=== PATIENT | female | born 1965 | race Caucasian/White ===

== ENCOUNTER → 2017-02-06 10:11 | Day surgery (SDC) | payer BC ==
--- NOTE | 2017-02-05 12:47 | HP ---
PREOPERATIVE HISTORY AND PHYSICAL: DATE OF ADMISSION: 02/06/17 DATE OF SURGERY: 02/06/17 DATE OF OFFICE VISIT: 02/05/17 ATTENDING SURGEON: Niurka Weiss MD PROCEDURE: Right shoulder arthroscopic decompression, debridement and possible subpectoral biceps t enodesis and possible rotator cuff repair. CHIEF COMPLAINT: Right shoulder pain. HISTORY OF PRESENT ILLNESS: Ms. Paige Philippe is a 51-year-old female who presents to the clinic for ongoing right shoulder pain since October when she was doing a one-arm pushup and felt a pop in he r arm. Since then, she has had pain and limited range of motion. She has failed conservative measu res and therefore has agreed to undergo a right shoulder arthroscopic decompression, debridement, po ssible subpectoral biceps tenodesis and possible rotator cuff repair with Dr. Weiss on 02/06/17. PAST MEDICAL HISTORY: JRA and mixed connective tissue disease. PAST SURGICAL HISTORY: Tympanoplasty in 1982, cholesteatoma surgery, tonsillectomy and adenoidectom y. Denies any problems with anesthesia. MEDICATIONS: 1. Xanax 50 mg 1 by mouth at night. 2. Vitamin D 5000 units daily. 3. [place]-3 2000 mg daily. 4. Aspirin as needed. 5 Tramadol 50 mg half a pill q. 4-6 hours as needed for pain. ALLERGIES: PENICILLIN causes shock, CEPHALOSPORIN causes C. diff, mild allergy to ADHESIVE TAPE. FAMILY HISTORY: Denies. SOCIAL HISTORY: The patient lives with her spouse. She works as a high school learning support teacher. She denie s tobacco use. She drinks 2 to 3 alcoholic beverages per week. She exercises regularly. She is ri ght-hand dominant. REVIEW OF SYSTEMS: A 14-point review of systems was reviewed with the patient and found to be negat adelina. Denies history of DVT, PE, shortness of breath, chest pain or bleeding disorder. PHYSICAL EXAMINATION GENERAL: Well-developed, well-nourished 51-year-old female in no acute distress. VITAL SIGNS: Height 64, weight 117, pulse 82, blood pressure 110/64, respiratory rate 14, temperatu re 97, BMI 20.1. HEENT: Normocephalic, atraumatic. PERRLA. Throat: Clear. NECK: Supple. PULMONARY: Lungs clear to auscultation bilaterally. No wheezing, rhonchi or rales. CARDIO: Regular rate and rhythm. S1, S2. No murmurs, gallops or rubs. No edema. ABDOMEN: Positive bowel sounds. Soft and nontender. MUSCULOSKELETAL: Right upper extremity, skin is intact. No obvious deformity. Tenderness to palpat ion of the subacromial space, the muscle bellies of the infraspinatus and the proximal biceps tendon . Forward flexion to 160, abduction to 90, external rotation to 45, internal rotation to the lumbar spine. No instability of the shoulder. +5/5 strength to the supraspinatus. +4/5 strength to the infraspinatus belly-press and bear-hug. Positive Neer, Speed's, Vigil- Guillermo,[place]. Positive radial pulse. Sensation intact to light touch distally. NEUROLOGIC: Alert and oriented x3. Cranial nerves grossly intact. Sensation intact to light touch distally. STUDIES: Multiple view radiographs revealed normal study with no evidence of acute fracture, dislo cation or arthritis. MR arthrogram of the right shoulder revealed infraspinatus tendinosis. IMPRESSION: Impingement syndrome and possible SLAP tear with the head of the biceps insert on the s uperior labrum. PLAN: The patient is scheduled to undergo a right shoulder arthroscopic decompression, debridement, possible subpectoral biceps tenodesis and possible rotator cuff repair with Dr. Weiss on 02/06/17. She will return to the office 10 to 14 days postop for follow up and suture removal. A prescripti on for Sherman was e- prescribed to the patient's pharmacy for postoperative pain management. She is also sent on Bactrim for infection prevention. DARINEL BO [id number]/[facility] #: [id number]
[~2017-02-06 10:11] MED LIST: Buffered Lidocaine 1% SYRIN* 3 ML/SYR SYRINGE INTRADERM ONE; Bupivacaine 0.25% SDV* 30 ML ONE; Clindamycin 900 MG IVPREMIX(* 0 MG/0 ML SDV IV ONE; Dexamethasone IV* 4 MG/ML 1 ML (4 MG) ONE; DiMENhydriNATE IV* 50 MG/ML VIAL IV PUSH PRN; DiMENhydriNATE IV* 50 MG/ML VIAL ONE; Famotidine IV* 10 MG/ML 2 ML (20 mg) IV ONE; Famotidine IV* 10 MG/ML 2 ML (20 mg) ONE; HYDROcodone/ACETAMIN 5-325 MG* 1 TAB PO PRN; HYDROmorphone* 1 MG/ML 1 ML SYR IV PRN; Midazolam* 1 MG/ML 5 ML VIAL (5 MG) ONE; Ondansetron INJ* 2 MG/ML VIAL IV PRN; Ondansetron INJ* 2 MG/ML VIAL ONE; Propofol* 10 MG/ML 20 ML BTL IV PUSH ONE; Scopolamine 1.5 mg* PATCH ONE; Scopolamine 1.5 mg* PATCH TRANSDERM ONE; Scopolomine PATCH Remove* 1 NOTE MISC PATCH OFF ONE; Vancomycin(*) 1,000 MG in NS 0.9% 250 ML* 250 ML IVPB ONE; fentaNYL* 50 MCG/ML 2 ML VIAL (100 MCG VIAL) IV PRN; fentaNYL* 50 MCG/ML 2 ML VIAL (100 MCG VIAL) ONE; methylPREDNISolone ACETATE 80* 80 MG/ML 1 ML VIAL ONE; oxyCODONE TAB* 5 MG TAB PO PRN
[2017-02-06 10:22] LABS: UR Preg Internal Control QC Line Present
[2017-02-06 15:55] VITALS: BP 101/56
--- NOTE | 2017-02-07 02:13 | OP ---
DATE OF OPERATION: 02/06/17 [facility] DATE OF : 67 SURGEON: Niurka Weiss MD ASSISTANTS: 1. DARINEL Smith 2. DARINEL Blas student. ANESTHESIOLOGIST: Stone Goode MD ANESTHESIA: General interscalene block. PRE-OP DIAGNOSIS: Right shoulder SLAP tear with impingement. POST-OP DIAGNOSIS: Right shoulder SLAP tear with impingement. OPERATIVE PROCEDURE: 1. Right shoulder arthroscopy with extensive glenohumeral debridement including chondroplasty as well as lysis of adhesions and debridement of the subscap. 2. Subacromial decompression with acromioplasty. 3. Subpectoral biceps tenodesis. 4. Subacromial injection of Depo-Medrol 80 mg. INDICATIONS: Jamilah is a 51-year-old female who was trying to do one-arm push up when she had felt a snap and had persisted pain. She has failed conservative management. She has limited range of motion. She is in daily pain. She has elected to proceed with operative treatment. Risks and benefits were discussed at length including but not limited to bleeding, infection, damage to nerves, vessels, surrounding structures, wound nonhealing, persistent pain, need for further surgery, stiffness, failure of the repair, risk of anesthesia, risk of DVT. She has elected to proceed. DESCRIPTION OF PROCEDURE: The patient was greeted in the preoperative area by the attending surgeon. The correct extremity was marked and consent was confirmed. The patient then underwent interscalene block in the preanesthesia area. The patient was then brought back to the operating suite, where she was placed in supine position on the operating table. She then underwent general anesthesia and endotracheal intubation, after which she was placed in the left lateral decubitus position with small axillary roll. She was secured with a peg board and all bony prominences were padded. The right arm was prepped unsterile with 10 pounds of traction. The right shoulder was prepped and draped in the usual sterile fashion beginning with chlorhexidine, soap, scrub, and alcohol wipe, and a final prep with ChloraPrep. After appropriate surgical pause indicating site, side, procedure, and administration of antibiotics, the posterolateral portal was made sharply with 11 blade. The scope was introduced through the joint. The joint was examined. There was abundant hyperemia in the joint and the joint appeared to look like very thickened, toughened capsulitis, did not sit normally and the joint was too tight. The biceps was inflamed. The superior labrum was torn from the 2 o' clock to 10 o'clock position. The undersurface of the supraspinatus was intact but very hyperemic. The subscap was also intact, but had mild tearing less than 5%. The anterior portal was made in an outside-in fashion. Cannula was placed. The anterior and posterior labrum had unstable flaps, which were debrided back. The center of the glenoid had small flaps that were debrided back using the shaver. Otherwise, there were grade 1 to 2 changes. The humeral head had grade 1 to 2 changes. The inferior recess was intact. The biceps was taken through range of motion and found to be very hyperemic and inflamed. The biceps was then tenotomized. The electrocautery device was then used to release some of the dense scar including some of the MGHL, there was abundant tight scar tissue that was inferior, which was removed. Care was taken to balance this well. After the debridement was completed as well as lysis of adhesions, the joint was evacuated of all fluid and debris and the scope was placed in the subacromial space. The subacromial space was examined. There was abundant inflamed hyperemic bursa that was present. The lateral portal was made in an outside-in fashion. Shaver was used to debride the bursal tissue, which was adherent to the cuff. Care was taken to protect the cuff. The cuff was then probed and found to have good quality tissue and was intact. The undersurface of the acromion was prepared using electrocautery device, which revealed a downward sloping spur. An acromioplasty was performed using a 4-0 oval bur. All loose debris and tissue were removed from the joint. At this point, it was decided to do a subacromial space injection. The needle was placed under arthroscopic visualization. The scope was removed from the shoulder and the bed was airplaned slightly to the right side. The anterior aspect of the shoulder was reprepped again using ChloraPrep. A 15-blade was used to make an incision in line with the biceps tendon. Soft tissues were carefully dissected using Metzenbaum scissors until the pec was identified and then the remainder of dissection was done bluntly. The pec was identified and retracted superiorly. The bicipital groove was palpated. The biceps was still in its bicipital sheath, which was then nicked and the biceps was removed. There was an abundant erythematous tissue and tendinitis as well as tendinopathy. Images were obtained. The groove was then prepared in the usual fashion with a rasp and osteotome and electrocautery device. The 2.8 Q-FIX drill guide was then used and drilled unicortically. The Q-FIX was deployed with excellent purchase. The sutures were then passed through the tendon approximately 1 cm proximal to the musculotendinous junction. Using Toribio-Kg type configuration, the excess stump was then sharply excised and the sutures were shuttled back to the groove. The sutures were then tied down and the wound was then copiously irrigated with sterile saline. The subcutaneous tissue was closed using 2-0 Vicryl and the skin with 3 -0 Monocryl. Sterile dressings were applied. The anterior wound was injected with 20 cc of 0.25% Marcaine plain. The subacromial space was injected with 80 mg of Depo-Medrol along with 5 cc of Marcaine. Portals were closed with 3-0 nylon. Anterior wound was closed in layers using 2-0 Vicryl and 3-0 Monocryl. Sterile dressings were applied. A Cryo/Cuff and an UltraSling were applied. She was awoken from anesthesia and transferred to the PACU condition. POSTOPERATIVE PLAN: She will be nonweightbearing. She will be in a sling for approximately 4 weeks. She will be discharged on pain medication including Bactrim. She has a history of C. diff, so we will be very careful about the antibiotics. She will be allowed to work on elbow, wrist, and hand range of motion as well as pendulums during postop day 1. I will see her back in 10 to 14 days. DVT prophylaxis was considered but deferred due to no previous personal or family history. CC: PCP, . [id number]/[facility] #: [id number] HERMINIO
== END | disposition home or self-care (01) ==
LOC: OR 10:11
PROVIDERS: ATTEND Orthopaedic Surgery
DX: S43.431A Superior glenoid labrum lesion of right shoulder, initial encounter (principal); M75.41 Impingement syndrome of right shoulder; X50.0XXA Overexertion from strenuous movement or load, initial encounter; Y92.9 Unspecified place or not applicable; M08.00 Unspecified juvenile rheumatoid arthritis of unspecified site; M35.9 Systemic involvement of connective tissue, unspecified
CPT/HCPCS: 81025; A9270-GY; C1776; J1040; J1100; J1240; J2250; J2405; J2704; J3010; J3370

== ENCOUNTER 2018-06-07 15:02 | Emergency (ER) | payer BC ==
[2018-06-07 15:29] VITALS: BP 118/78
--- NOTE | 2018-06-07 16:16 | UC ---
Head Injury HPI - HPI Summary HPI Summary: This patient is a 53 year old F presenting to [facility] with a chief complaint of nausea, decreased balance, dizziness, disorientation, and sensation of the head described as hot and tingling on 06/01/18 while hiking in [place]. She states she fell and hit the right side of her head on a rock. She states initially she was unable to get up for about 10 minutes. She initially had significant nausea, disorientation, dizziness, and headache. She denies bleeding or significant abrasion at the time. Symptoms Slightly improved the next day, but still felt slightly unbalanced, disoriented, and dizzy the next two days. Symptoms exaccerabted by her flight home yesterday. Denies current headache or neck pain. - History Of Current Complaint Chief Complaint: UCHeadInjury Stated Complaint: HEAD INJURY Time Seen by Provider: 06/07/18 15:58 Hx Obtained From: Patient Onset/Duration: Sudden Onset, Lasting Days, Still Present Severity Currently: Severe Severity Initially: Mild Pain Intensity: 0 Character: Other - hot tingling Aggravating Factor(s): Other - recent flight Associated Signs And Symptoms: Positive: Confusion, Nausea, Other - loss of balance, dizzy, currently resolved headache - Allergies/Home Medications Allergies/Adverse Reactions: Allergies Allergy/AdvReac Type Severity Reaction Status Date / Time MS Penicillins [Penicillins] Allergy Anaphylatic Verified 06/07/18 15:30 Shock UNKNOWN ANTIBIOTIC Allergy See Comment Uncoded 04/25/17 13:52 Home Medications: Home Medications Bupropion XL* [Wellbutrin XL *] 300 mg PO DAILY 06/07/18 [History Confirmed ] lamoTRIgine TAB(*) [Lamictal TAB(*)] 350 mg PO DAILY 06/07/18 [History Confirmed 06/07/18] PMH/Surg Hx/FS Hx/Imm Hx Previously Healthy: Yes - Denies medical hx - Surgical History Surgical History: Yes Surgery Procedure, Year, and Place: 1982 GROWTH REMOVED ON EAR, SURGERY ON EAR- RECONSTRUCTION EARDRUM/CLEARED PER BILL; YOUNG CHILD TONSILECTOMY; RT SHOULDER SLAP TEAR PROCEDURE 02/06/17 - Family History Known Family History: Positive: Other Family History: mitochondrial DNA dz. - Social History Alcohol Use: Weekly Alcohol Amount: 3 GLASS/WEEK USUALLY Substance Use Type: None Smoking Status (MU): Never Smoked Tobacco Have You Smoked in the Last Year: No Review of Systems Skin: Negative Gastrointestinal: Nausea Musculoskeletal: Negative - neck pain Neurological: Headache - currently resolved, "hot tingling" head, Other - decreased balance, disorientation, All Other Systems Reviewed And Are Negative: Yes Physical Exam - Summary Physical Exam Summary: General: well-appearing, no pain distress Skin: warm, color reflects adequate perfusion, dry Head: normal Eyes: EOMI, MIKO ENT: normal Neck: supple, nontender Respiratory: CTA, breath sounds present Cardiovascular: RRR Abdomen: soft, nontender Bowel: present Musculoskeletal: normal, strength/ROM intact Neurological: sensory/motor intact, A&O x3 Psychological: affect/mood appropriate Triage Information Reviewed: Yes Vital Signs: Initial Vital Signs Temp 98.6 F 06/07/18 15:23 Pulse 59 06/07/18 15:23 Resp 16 06/07/18 15:23 BP 118/78 06/07/18 15:23 Pulse Ox 100 06/07/18 15:23 Vital Signs Reviewed: Yes Head Injury Course/Dx - Course Course Of Treatment: DISCUSSED HEAD CT AT THE EMERGENCY DEPARTMENT NOW WE DO NOT HAVE CT IN CLINIC TODAY. THE PATIENT DECLINED GOING TO THE ED. WE DISCUSSED TREATMENT OF CONCUSSION. CAITLIN AGREED TO GO TO THE ED WITH ANY WORSENING OF HER CONDITION. F/U PMD. - Differential Dx/Diagnosis Provider Diagnoses: CONCUSSION Discharge - Sign-Out/Discharge Documenting (check all that apply): Patient Departure - Discharge Plan Condition: Stable Disposition: HOME Patient Education Materials: Concussion (ED) Forms: *School Release Referrals: Junito Guzman MD [Primary Care Provider] - Additional Instructions: FOLLOW UP WITH YOUR PRIMARY CARE DOCTOR. GO TO THE EMERGENCY DEPARTMENT FOR ANY WORSENING OF YOUR CONDITION; PAIN, WEAKNESS, NUMBNESS, UNEXPLAINED VOMITING, CHANGES IN SPEECH OR VISION OR QUESTIONS OR CONCERNS. - Billing Disposition and Condition Condition: STABLE Disposition: Home
== END 2018-06-07 16:32 | disposition home or self-care (01) ==
LOC: UCEAST 15:02
DX: S06.0X9A Concussion with loss of consciousness of unspecified duration, initial encounter (principal); W18.09XA Striking against other object with subsequent fall, initial encounter; Y93.01 Activity, walking, marching and hiking; Y92.9 Unspecified place or not applicable; R41.0 Disorientation, unspecified; R11.0 Nausea; R42 Dizziness and giddiness; Z88.1 Allergy status to other antibiotic agents; Z88.0 Allergy status to penicillin; Z83.49 Family history of other endocrine, nutritional and metabolic diseases
CPT/HCPCS: 99211; G0463

== ENCOUNTER 2018-07-05 14:46 | Emergency (ER) | payer BC ==
[2018-07-05 15:45] VITALS: BP 115/70
--- NOTE | 2018-07-05 15:48 | UC ---
Elbow Pain - HPI Summary HPI Summary: 53 yo female presents with RIGHT elbow/proximal forearm pain since 07/02. She tells me that she was hiking on 07/02 with her partner when she slipped and fell. Did not hit her head or have LOC. She hit her right elbow/forearm against a rock and sustained a laceration. She did not seek medical treatment. She cleaned the area and applied a band-aid with neosporin. Since that time has had pain in the area and thinks the laceration site may be infected. She denies fever or chills. Has not taken anything for her pain. - History of Current Complaint Chief Complaint: UCUpperExtremity Stated Complaint: RIGHT ARM INJURY Time Seen by Provider: 07/05/18 15:47 Hx Obtained From: Patient Onset/Duration: Days Severity Initially: Moderate Severity Currently: Mild Pain Intensity: 2 Pain Scale Used: 0-10 Numeric - Allergies/Home Medications Allergies/Adverse Reactions: Allergies Allergy/AdvReac Type Severity Reaction Status Date / Time MS Penicillins [Penicillins] Allergy Anaphylatic Verified 06/07/18 15:30 Shock UNKNOWN ANTIBIOTIC Allergy See Comment Uncoded 04/25/17 13:52 PMH/Surg Hx/FS Hx/Imm Hx Neurological History: Migraine Psychological History: Anxiety, Depression, Bipolar Disorder - Surgical History Surgical History: Yes Surgery Procedure, Year, and Place: 1982 GROWTH REMOVED ON EAR, SURGERY ON EAR- RECONSTRUCTION EARDRUM/CLEARED PER BILL; YOUNG CHILD TONSILECTOMY; RT SHOULDER SLAP TEAR PROCEDURE 02/06/17 - Family History Known Family History: Positive: None, Other Family History: mitochondrial DNA dz. - Social History Occupation: Employed Full-time Lives: With Family Alcohol Use: Occasionally Alcohol Amount: 3 GLASS/WEEK USUALLY Substance Use Type: Prescribed Smoking Status (MU): Never Smoked Tobacco Have You Smoked in the Last Year: No - Immunization History Most Recent Tetanus Shot: unknown Review of Systems Constitutional: Negative Skin: Other - Laceration to right elbow Respiratory: Negative Cardiovascular: Negative Gastrointestinal: Negative Neurovascular: Negative Musculoskeletal: Other: - Right elbow pain Neurological: Negative Psychological: Negative All Other Systems Reviewed And Are Negative: Yes Physical Exam - Summary Physical Exam Summary: GENERAL: NAD. WDWN. No pain distress. SKIN: Right inferior elbow: 1.0cm healing laceration with mild yellow purulent drainage. No surrounding erythema or edema. NECK: Supple. Nontender. No lymphadenopathy. CHEST: No accessory muscle use. Breathing comfortably and in no distress. CV: Pulses intact radial and ulnar. MSK: Right elbow: Moderate TTP at radial head just superior to laceration. Pain with supination. FROM Strength 5/5 including wellness consultant strength. No edema or obvious bony deformities. NEURO: Alert. Sensations intact hand and all fingers. PSYCH: Age appropriate behavior. Triage Information Reviewed: Yes Vital Signs: Initial Vital Signs Temp 98.3 F 07/05/18 15:40 Pulse 72 07/05/18 15:40 Resp 12 07/05/18 15:40 BP 115/70 07/05/18 15:40 Pulse Ox 100 07/05/18 15:40 Vital Signs Reviewed: Yes Elbow Pain Course/Dx - Course Course Of Treatment: XR elbow and forearm: IMPRESSION: NO EVIDENCE FOR FRACTURE. IMPRESSION: SOFT TISSUE SWELLING, NO FRACTURE IS SEEN. Wound infection. She is allergic to PCN and says that she has had c. diff in the past after taking a cephalosporin medication a few years ago. Therefore will avoid keflex and clindamycin and rx for bactrim. Wound was dressed with telfa today. Advised to change dressing daily - Differential Dx/Diagnosis Provider Diagnoses: Right proximal forearm laceration. Fall Discharge - Sign-Out/Discharge Documenting (check all that apply): Patient Departure - Discharge Plan Condition: Stable Disposition: HOME Prescriptions: Sulfamethox/Trimethoprim DS* [Bactrim DS 800/160 TAB*] 1 tab PO BID #14 tab Patient Education Materials: Laceration (DC), Wound Infection (DC) Referrals: Junito Guzman MD [Primary Care Provider] - Additional Instructions: If you develop a fever, shortness of breath, chest pain, new or worsening symptoms - please call your PCP or go to the ED. Per institutional requirements, I have reviewed the chart, however, I was not consulted specifically or made aware of this patient by the above midlevel provider. I did not personally evaluate, interact with , or disposition this patient. - Billing Disposition and Condition Condition: STABLE Disposition: Home
--- NOTE | 2018-07-05 16:16 | RAD ---
INDICATION: Right elbow injury. TECHNIQUE: 4 views of the right elbow were obtained. FINDINGS: There is soft tissue swelling posterior to the proximal ulna. The bones are in normal alignment. No joint effusion or fracture is seen. IMPRESSION: SOFT TISSUE SWELLING, NO FRACTURE IS SEEN.
--- NOTE | 2018-07-05 16:18 | RAD ---
INDICATION: Right forearm injury. TECHNIQUE: 2 views of the right forearm were obtained. FINDINGS: There is soft tissue swelling dorsal to the proximal ulna. The bones are in normal alignment. No fracture is seen. IMPRESSION: NO EVIDENCE FOR FRACTURE.
--- NOTE | 2018-07-07 18:26 | UC ---
- Progress Note Progress Note: 07/07/2018 Pt seen on 07/05/2018 aw/ laceration. Wound culture preliminary returned no growth. Pr Rx Bactrim PO Awaiting for final report No change. Pat Spann PA-C Discharge - Sign-Out/Discharge Documenting (check all that apply): Patient Departure - D/C home - Discharge Plan Condition: Stable Disposition: HOME Prescriptions: Sulfamethox/Trimethoprim DS* [Bactrim DS 800/160 TAB*] 1 tab PO BID #14 tab Patient Education Materials: Laceration (DC), Wound Infection (DC) Referrals: Junito Guzman MD [Primary Care Provider] - Additional Instructions: If you develop a fever, shortness of breath, chest pain, new or worsening symptoms - please call your PCP or go to the ED. Per institutional requirements, I have reviewed the chart, however, I was not consulted specifically or made aware of this patient by the above midlevel provider. I did not personally evaluate, interact with , or disposition this patient. - Billing Disposition and Condition Condition: STABLE Disposition: Home
== END 2018-07-05 16:43 | disposition home or self-care (01) ==
LOC: UCEAST 14:46
DX: S51.811A Laceration without foreign body of right forearm, initial encounter (principal); W01.0XXA Fall on same level from slipping, tripping and stumbling without subsequent striking against object, initial encounter; Y93.01 Activity, walking, marching and hiking; Y92.9 Unspecified place or not applicable; Z88.1 Allergy status to other antibiotic agents; Z88.0 Allergy status to penicillin
CPT/HCPCS: 87070; 87205; 99212; G0463

== ENCOUNTER 2018-09-01 13:59 | Emergency (ER) | payer BC ==
[2018-09-01 15:00] VITALS: BP 119/77
--- NOTE | 2018-09-01 15:22 | UC ---
Cardiac HPI - HPI Summary HPI Summary: 53 y/o female presents to the urgent care c/o Patient fell down stairs about 1 hour ago and landed on R side; states that she is having R sided rib and back pain. Denies any head injury or LOC. - History of Current Complaint Chief Complaint: UCBackPain Stated Complaint: RIB INJURY Time Seen by Provider: 09/01/18 15:20 Hx Obtained From: Patient Onset/Duration: Sudden Onset, Lasting Hours - 1 hr Pain Intensity: 7 - Allergy/Home Medications Allergies/Adverse Reactions: Allergies Allergy/AdvReac Type Severity Reaction Status Date / Time Cephalosporins Allergy See Comment Verified 09/01/18 14:53 Penicillins Allergy Anaphylatic Verified 09/01/18 14:53 Shock PMH/Surg Hx/FS Hx/Imm Hx - Surgical History Surgical History: Yes Surgery Procedure, Year, and Place: 1982 GROWTH REMOVED ON EAR, SURGERY ON EAR- RECONSTRUCTION EARDRUM/CLEARED PER BILL; YOUNG CHILD TONSILECTOMY; RT SHOULDER SLAP TEAR PROCEDURE 02/06/17 - Family History Known Family History: Positive: None, Other Family History: mitochondrial DNA dz. - Social History Alcohol Use: Daily Alcohol Amount: 1 glass/daily Substance Use Type: Marijuana Smoking Status (MU): Never Smoked Tobacco Have You Smoked in the Last Year: No - Immunization History Most Recent Tetanus Shot: unknown Physical Exam - Summary Physical Exam Summary: Vital Signs Reviewed: Yes GENERAL: Well-Appearing, No Pain Distress, Well-Nourished female w/o any apparent pain distress Eyes: Positive: Conjunctiva Clear - PERRL,EOMI ENT: Positive: Normal ENT inspection, Hearing grossly normal, Pharyngeal erythema - mild, Nasal drainage - clear, Uvula midline Neck: Positive: Supple, Nontender, No Lymphadenopathy Respiratory: Positive: Chest non-tender, Lungs clear, Normal breath sounds, No respiratory distress Cardiovascular: Positive: RRR, No Murmur, Pulses Normal, Brisk Capillary Refill Abdomen Description: Positive: Nontender, No Organomegaly, Soft. Negative: CVA Tenderness (R), CVA Tenderness (L) Bowel Sounds: Positive: Present Musculoskeletal: LF shoulder: The L shoulder is with/without obvious asymmetry or deformity when compared to the R shoulder. posterior shoulder w/ ecchymosis and bruising, no crepitus. No bony deformity or prominence of humeral head. No erythema, warmth. No Point Tenderness to palpation over the clavicle, or scapula. positive tenderness over Acromioclavicular joint and humeral head with mild swelling, NT to palpation of the bicipital groove . NT to palpation of the muscles of the sternocleidomastoid, pectoralis, biceps/triceps, deltoid, trapezius, . Limited ROM due to pain especially in adduction and abduction.on both passive and active, internal/external rotation, flexion/extension. "empty can and drop arm test unable to perform due to pain. No axillary tenderness or lymphadenopathy. Normal sensation over the deltoid and fingers. Distal motor and neurovascular status is intact. Neurological Exam: Normal Psychological Exam: Normal Skin Exam: Normal Triage Information Reviewed: Yes Vital Signs: Initial Vital Signs Temp 98.4 F 09/01/18 14:51 Pulse 58 09/01/18 14:51 Resp 18 09/01/18 14:51 BP 119/77 09/01/18 14:51 Pulse Ox 100 09/01/18 14:51 - Clinical Impression Provider Diagnoses: 1- Acute Rt rib contusion s/p fall. 2- RT shoulder pain s/ p fall. 3- Rt shoulder sprain Discharge - Sign-Out/Discharge Documenting (check all that apply): Patient Departure - D/c home All imaging exams completed and their final reports reviewed: Yes - Discharge Plan Condition: Stable Disposition: HOME Prescriptions: Ibuprofen TAB* [Motrin TAB* 600 MG] 600 mg PO Q6H PRN #30 tab PRN Reason: Pain Patient Education Materials: Shoulder Sprain (ED), Rib Contusion (ED) Referrals: Junito Guzman MD [Primary Care Provider] - 1 Week Niurak Weiss MD [Medical Doctor] - 1 Week Additional Instructions: 1-Please take ibuprofen 600 PO q6-8hrs prn as instructed after meals to alleviate pain and swelling. Increase fluid intake, eat well, rest and avoid strenuous exercise 2- Please keep your Rt shoulder immobilized w/ the shoulder sling you have at home. Apply ice, avoid any strenuous exercise or heavy lifting 3-If symptoms do not improve or worsen please f/u w/ DR Weiss in 1 week for further evaluation and treatment. - Billing Disposition and Condition Condition: STABLE Disposition: Home
--- NOTE | 2018-09-01 16:08 | RAD ---
INDICATION: Right shoulder pain after a fall COMPARISON: None. TECHNIQUE: 4 views of the right shoulder were obtained. FINDINGS: The adequately corticated bones are in normal alignment. Joint spaces appear maintained. No fracture, dislocation or focal bony abnormality is seen. IMPRESSION: Normal radiograph of the right shoulder. If the patient's symptoms persist, follow-up imaging is recommended.
--- NOTE | 2018-09-01 16:14 | RAD ---
INDICATION: Right rib pain after a fall COMPARISON: None. TECHNIQUE: 5 views of the right ribs were obtained. FINDINGS: Metallic marker is seen overlying the right lateral mid-level thorax No fracture or significant focal osseous abnormality is seen. No pneumothorax is apparent. Limited views demonstrate grossly clear lungs. IMPRESSION: No radiographically apparent displaced rib fracture or pneumothorax. If the patient's symptoms persist, follow-up imaging is recommended.
== END 2018-09-01 16:45 | disposition home or self-care (01) ==
LOC: UCEAST 13:59
DX: Z88.0 Allergy status to penicillin (principal); S20.20XA Contusion of thorax, unspecified, initial encounter; S43.401A Unspecified sprain of right shoulder joint, initial encounter; W10.9XXA Fall (on) (from) unspecified stairs and steps, initial encounter; Y92.9 Unspecified place or not applicable
CPT/HCPCS: 99202; G0463